=== PATIENT | male | born 1985 | race Caucasian/White ===

== ENCOUNTER 2019-03-03 17:21 | Inpatient (IN) | payer OTHER ==
[~2019-03-03] VITALS: Ht 175.3 cm; Wt 70.8 kg
[2019-03-03 17:22] VITALS: BP 147/82
[2019-03-03 18:20] LABS: ABSOLUTE NEUTROPHILS 6.2 thou/uL (1.4-8.2); BASOPHILS 0.3 % (0.0-2.0); HEMATOCRIT 42.8 % (42.0-52.0); HEMOGLOBIN 14.2 gm/dL (14.0-18.0); LYMPHOCYTES 19.2 % (24.0-44.0); MCH 30.3 pg (26.0-34.0); MCHC 33.3 g/dL (28.0-37.0); MCV 90.9 fL (80.0-100.0); PLATELET COUNT 274 thou/uL (150-400); POLYS 73.5 % (36.0-66.0); RBC 4.71 mil/uL (4.50-6.00); RDW 13.4 % (10.5-14.5); WBC 8.4 thou/uL (4.0-11.0)
[2019-03-03 18:31] LABS: ANION GAP 7 mmol/L (7-16); BUN 15 mg/dL (7-18); CALCIUM 9.1 mg/dL (8.5-10.1); CHLORIDE 104 mmol/L (98-107); CO2 29 mmol/L (21-32); CREATININE 1.2 mg/dL (0.7-1.3); GLUCOSE 92 mg/dL (74-106); POTASSIUM 3.2 mmol/L (3.5-5.1); SODIUM 140 mmol/L (136-145)
[2019-03-03 18:41] LABS: ALBUMIN 3.9 g/dL (3.4-5.0); SALICYLATE < 2.8 mg/dL (2.8-20.0); SGOT 20 U/L (15-37); SGPT 31 U/L (30-65); TOTAL BILIRUBIN 0.4 mg/dL (<0.1-1.0); TOTAL PROTEIN 7.4 g/dL (6.4-8.2); TROPONIN-I <0.06 ng/mL (<0.06)
[2019-03-03 19:11] LABS: URINE BILIRUBIN NEGATIVE (Negative); URINE BLOOD NEGATIVE (Negative); URINE CLARITY CLEAR; URINE COLOR YELLOW; URINE GLUCOSE-RANDOM* NEGATIVE (Negative); URINE KETONES TRACE (Negative); URINE LEUKOCYTES-REFLEX NEGATIVE (Negative); URINE NITRITE-REFLEX NEGATIVE (Negative); URINE PROTEIN (DIPSTICK) NEGATIVE (Negative); URINE SPECIFIC GRAVITY >= 1.030 (1.005-1.035); URINE UROBILINOGEN 0.2 E.U./dl (0.2-1.0)
[2019-03-03 19:19] LABS: AMP/METHAMP POSITIVE (Negative); BARBITURATES Negative (Negative); BENZODIAZEPINES Negative (Negative); COCAINE Negative (Negative); METHADONE Negative (Negative); OPIATES Negative (Negative); PCP Negative (Negative)
[2019-03-03 22:50] VITALS: BP 126/69
[2019-03-03 22:57] VITALS: BP 120/66
--- NOTE | 2019-03-03 23:00 | NUR ---
Pt is arrived in ICU ,accompanied with ammunition supervisor and [facility] officer to room 245. He is being admit for Methamphetamine Overdose. He is AAOX4, no s/sx of any distress upon arrival. NSR on monitor notes. He is being handcuff in bed per [facility] officer. He is refused to answer any questions at this time. Assessment completed. Seizure precaution inplaced. Continue to monitor him closely.
--- NOTE | 2019-03-03 23:18 | NUR ---
PT REFUSED TO ANSWERING MY QUESTIONS.
[2019-03-04] VITALS (25 sets, daily range): BP systolic 107–129; BP diastolic 48–76
--- NOTE | 2019-03-04 02:00 | NUR ---
Poison control called for an updates.
[2019-03-04 04:59] LABS: CREATININE 1.1 mg/dL (0.7-1.3); POTASSIUM 4.1 mmol/L (3.5-5.1)
--- NOTE | 2019-03-04 06:37 | NUR ---
Mr.William Ordonez, who is pt brother called. Pt gave me a permission to speak with him. I updates his current conditions while he is being admit in ICU.
--- NOTE | 2019-03-04 06:41 | NUR ---
Pt remains stable this am. Still refusing to speak to me. No seizure activity indicates. Continue to observe him closely.
--- NOTE | 2019-03-04 19:15 | NUR ---
Pt has dozed intermittently today. Pt sat up in bed for his meals. Pt not allowed out of bed per instruction from police officers who have been here to monitor patient. Sinus rhythm. Room air. Pt refused laxative ordered this morning by Dr Cuello. was notified of pt's refusal to take laxative. No BM this shift. Report given to RN assuming care.
[2019-03-05] VITALS (9 sets, daily range): BP systolic 108–129; BP diastolic 62–75
--- NOTE | 2019-03-05 07:28 | NUR ---
END OF SHIFT SUMMARY: Pt has remained stable this shift. Monitor sinus mariam, rates 45-58, when pt sleeping, and sinus rhythm, 60-70's, when pt awake. O2 sat remains > 95% on room air. Tolerating regular diet well. Active bowel sounds, no BM this shift. Pt refused to have lab drawn this a.m. Pt remains on police hold; skin intact where pt hand cuffed. Urine output adequate.
--- NOTE | 2019-03-05 08:13 | EKG ---
[address] [place] [address] ELECTROCARDIOGRAM REPORT Name: FERNANDEZ DAMIAN Room #: 245-P ADM IN M.R.#: [id number] ������������������ Admission: 03/03/19 ������������������ Attend Phys: Bryon Rankin MD Discharge: ������������������ Date of : 83 Report #: [id number] ����������������������������������������������������������������� [id number] THIS REPORT FOR: //name// [facility] ED Test Date: 2019-03-03 Test Time: 17:35:35 Pat Name: FERNANDEZ DAMIAN Department: Room: [facility] Gender: M Bridges Supervisor: CHARLES : 1985 Requested By: Escobar Roman Order Number: [id number] MD: Damien Rucker Measurements Intervals [place] Rate: 67 P: 74 RI: 122 QRS: 89 QRSD: 108 T: 62 QT: 403 QTc: 426 Interpretive Statements Sinus rhythm Probable left atrial enlargement ST elev, probable normal early repol pattern No previous ECG available for comparison Electronically Signed On 03-05-2019 8:13:14 CDT by Damien Rucker [email or web address] ��������������������������������������������� <ELECTRONICALLY SIGNED> ���������������������������������������� By: Damien Rucker MD ��������������������������������������������� 03/05/19 0813 [id number] MD NOLAN Bradley
--- NOTE | 2019-03-05 09:20 | NUR ---
Pt discharged by Dr Cuello. Pt is under police custody. Pt discharged to police custody for transport to the [facility]. Pt alert and oriented. Reviewed discharge summary with patient and he signed the signature page. Discharge summary sent with patient. Pt was allowed to put on his shorts, tank top shirt, socks and shoes by police sergeant. Other belongings including belt, cell phone, wallet and 31.25 in garza sent with police officers in belongings bag. IV was dc'd. Pt to followup with Dr. Gleason. Pt escorted out of the ICU by police officers and security screener from [facility].
--- NOTE | 2019-03-05 09:30 | NUR ---
Arnulfo hines's authorized [facility]
== END 2019-03-05 09:30 | DRG 918 ==
LOC: ER 17:21 → EROBS 21:40 → ICU 21:40
PROVIDERS: Emergency Medicine; Nurse Practitioner Family; ADMIT Hospitalist
DX: T43.622A Poisoning by amphetamines, intentional self-harm, initial encounter (principal); F15.129 Other stimulant abuse with intoxication, unspecified; F10.10 Alcohol abuse, uncomplicated; F17.200 Nicotine dependence, unspecified, uncomplicated; Y92.89 Other specified places as the place of occurrence of the external cause
CPT/HCPCS: 10078